=== PATIENT | male | born 1970 | race Caucasian/White ===

== ENCOUNTER 2024-04-12 10:23 | Emergency (ER) | payer OTHER, SELFPAY ==
[2024-04-12 11:23] LABS: INR-International Normal Ratio 0.9; Prothrombin Time 12.6 sec (12.0-14.7)
[2024-04-12 11:24] LABS: PTT 27.4 sec (22.9-36.1); White Blood Cell (WBC) Count 8.8 10x3/uL (4.8-10.8)
[2024-04-12 11:25] LABS: Hemoglobin 16.9 g/dL (14.0-18.0); Red Blood Cell (RBC) Count 6.87 mill/uL (4.70-6.10)
[2024-04-12 11:26] LABS: Mean Corpuscular HGB CONC 32.3 g/dL (32.0-36.0); Mean Corpuscular Hemoglobin 29.6 pg (27.0-31.0); Mean Corpuscular Volume 91.5 fl (78.0-98.0); RBC Distribution Width 11.9 % (11.5-14.5)
[2024-04-12 11:27] LABS: #Lymphocytes 2.6 thou/uL (1.20-3.40); #Neutrophils 5.1 thou/uL (1.40-6.50); %Basophils 1.3 % (0.0-1.0); %Eosinophils 1.9 % (0.0-10.0); %Lymphocytes 29.5 % (21.0-51.0); %Monocytes 9.7 % (0.0-10.0); %Neutrophils 57.8 % (42.0-75.0); Mean Platelet Volume 8.3 fL (7.4-10.4); Platelet Count 390 10x3/uL (130-400)
[2024-04-12 11:28] LABS: #Basophils 0.1 thou/uL (0.0-0.2); #Eosinophils 0.2 thou/uL (0.0-0.7); #Monocytes 0.9 thou/uL (0.11-0.59)
[2024-04-12 11:36] LABS: ALT (SGPT) 50 U/L (8-55); AST (SGOT) 28 U/L (5-34); Albumin 3.7 g/dL (3.5-5.0); Alkaline Phosphatase 53 U/L (40-110); Anion Gap 12 mmol/L (10-20); BUN (Urea Nitrogen) 17 mg/dL (8.4-25.7); Bilirubin, Total 0.4 mg/dL (0.2-1.2); Calc. Creatinine Clearance 0 mL/min (70-130); Calcium 9.3 mg/dL (7.8-10.44); Carbon Dioxide 25 mmol/L (22-29); Chloride 105 mmol/L (98-107); Estimated GFR 80; Globulin 3.1 g/dL (2.4-3.5); Glucose 92 mg/dL (70-105); Potassium 3.9 mmol/L (3.5-5.1); Protein, Total 6.8 g/dL (6.0-8.3); Sodium 138 mmol/L (136-145)
== END 2024-04-12 12:25 | disposition home or self-care (01) ==
LOC: NAV ERS 10:23
DX: I10 Essential (primary) hypertension (principal); J32.9 Chronic sinusitis, unspecified
CPT/HCPCS: 70450; 80053; 84484; 85025; 85610; 85730; 93005